=== PATIENT | female | born 1995 | race Caucasian/White ===

== ENCOUNTER 2021-03-02 13:34 | Emergency (ER) | payer BC ==
[2021-03-02] MEDS ORDERED: Sodium Chloride 0.9% 10 ML Syringe FLUSH PRN (13:57)
[2021-03-02] MEDS ORDERED: HYDROmorphone 1 MG/ML Syringe IVPUSH ONE (13:57)
[2021-03-02] MEDS ORDERED: Lactated Ringers 1,000 ML IV SCH (14:00)
--- NOTE | 2021-03-02 14:03 | EDM.PDOC ---
ED HPI GENERAL MEDICAL PROBLEM - General Chief Complaint: Lower Extremity Injury/Pain Stated Complaint: LT ANKLE INJURY Time Seen by Provider: 03/02/21 13:51 Source of Information: Reports: Patient History Limitations: Reports: No Limitations - History of Present Illness INITIAL COMMENTS - FREE TEXT/NARRATIVE: The patient presents with a left ankle injury. She was hiking and she slid down a hill and dislocated her left ankle. She denies any other injuries. She last ate at 8am. She did have some water on the way here. She has no medical problems. Onset: Sudden Duration: Hour(s): Location: Reports: Lower Extremity, Left (ankle) Quality: Reports: Sharp Severity: Severe Improves with: Reports: Immobilization Worsens with: Reports: Movement Context: Reports: Trauma (slid down and hill) Associated Symptoms: Reports: No Other Symptoms Left Ankle Pain Score (Numeric/FACES): 8 - Related Data Allergies Allergy/AdvReac Type Severity Reaction Status Date / Time No Known Allergies Allergy Verified 03/02/21 13:54 Home Meds: Home Meds oxyCODONE HCl/Acetaminophen [Percocet 5-325 mg Tablet] 1 - 2 each PO Q6HR PRN #30 tablet 03/02/21 [Rx] Past Medical History Psychiatric History: Reports: Anxiety - Past Surgical History HEENT Surgical History: Reports: Oral Surgery Social & Family History - Tobacco Use Tobacco Use Status *Q: Never Tobacco User - Caffeine Use Caffeine Use: Reports: Coffee - Recreational Drug Use Recreational Drug Use: No Review of Systems - Review of Systems Review Of Systems: See Below Constitutional: Reports: No Symptoms Eyes: Reports: No Symptoms Ears: Reports: No Symptoms Nose: Reports: No Symptoms Mouth/Throat: Reports: No Symptoms Respiratory: Reports: No Symptoms Cardiovascular: Reports: No Symptoms GI/Abdominal: Reports: No Symptoms Genitourinary: Reports: No Symptoms Musculoskeletal: Reports: Other (Left ankle injury) ED EXAM, GENERAL - Physical Exam Exam: See Below Exam Limited By: No Limitations General Appearance: Alert, No Apparent Distress Ears: Normal External Exam Nose: Normal Inspection Head: Atraumatic, Normocephalic Neck: Normal Inspection Respiratory/Chest: No Respiratory Distress, Lungs Clear, Normal Breath Sounds Cardiovascular: Regular Rate, Rhythm, No Edema, No Murmur GI/Abdominal: Soft, Non-Tender, No Organomegaly, No Mass Extremities: Other (Left ankle swelling and deformity. The foot is shifted backward. Good sensation and pulses distally.) ED TRAUMA EXTREMITY PROCEDURES - Joint Reduction Left Ankle Sedation: Conscious Sedation Pre-Procedure NV Status: Normal Post-Procedure NV Status: Normal Technique: Traction/Counter Traction Number of Attempts: 1 Post-Reduction Imaging: Completely Reduced, Fracture Seen Joint Reduction Complications: No - Splinting Left Lower Extremity Splint Site: Left ankle Pre-Procedure NV Status: Normal Post-Procedure NV Status: Normal Splint Material: Fiberglass Splint Design: Stirrup, Posterior Applied & Form Fitted By: Provider Provider Post-Splint Application NV Check: NV Status Normal, Good Position Complications: No Course - Vital Signs Last Recorded V/S: Last Vital Signs Temp 96.9 F 03/02/21 13:51 Pulse 86 03/02/21 13:51 Resp 18 03/02/21 13:51 BP 136/72 03/02/21 13:51 Pulse Ox 100 03/02/21 13:51 - Orders/Labs/Meds Orders: Active Orders 24 hr Category Date Time Status Ankle 2V Lt [CR] Stat Exams 03/02/21 15:02 Taken Ankle Min 3V Lt [CR] Stat Exams 03/02/21 13:58 Taken Durable Medical Equipment for Discharge [DME for Oth 03/02/21 15:37 Ordered Discharge] [COMM] Stat Peripheral IV Insertion Adult [OM.PC] Routine Oth 03/02/21 13:57 Ordered Meds: Medications Discontinued Medications Generic Name Dose Route Start Last Admin Trade Name Freq PRN Reason Stop Dose Admin Hydromorphone HCl 1 mg 03/02/21 13:57 03/02/21 14:04 Hydromorphone 1 Mg/Ml Syringe IVPUSH 03/02/21 13:58 1 mg ONETIME ONE Administration Hydromorphone HCl 0.5 mg 03/02/21 15:19 03/02/21 15:26 Hydromorphone 0.5 Mg/0.5 Ml Syringe IVPUSH 03/02/21 15:20 0.5 mg ONETIME ONE Administration Hydromorphone HCl 0.5 mg 03/02/21 16:09 03/02/21 16:16 Hydromorphone 0.5 Mg/0.5 Ml Syringe IVPUSH 03/02/21 16:10 0.5 mg ONETIME ONE Administration Lactated Ringer's 1,000 mls @ 100 mls/hr 03/02/21 14:00 03/02/21 14:08 Ringers, Lactated IV 100 mls/hr ASDIRECTED STEPHAN Administration Ketorolac Tromethamine 30 mg 03/02/21 16:09 03/02/21 16:14 Ketorolac 30 Mg/Ml Sdv IVPUSH 03/02/21 16:10 30 mg ONETIME ONE Administration Propofol Confirm 03/02/21 14:47 Propofol 200 Mg/20 Ml Sdv Administered 03/02/21 14:48 Dose 200 mg .ROUTE .STK-MED ONE Propofol Confirm 03/02/21 14:54 Propofol 200 Mg/20 Ml Sdv Administered 03/02/21 14:55 Dose 200 mg .ROUTE .STK-MED ONE Sodium Chloride 10 ml 03/02/21 13:57 03/02/21 14:09 Sodium Chloride 0.9% 10 Ml Syringe FLUSH 10 ml ASDIRECTED PRN Administration Keep Vein Open - Re-Assessments/Exams Free Text/Narrative Re-Assessment/Exam: 03/02/21 14:02 I ordered an IV LR at 100ml/hr, dilaudid 1mg IV and an x-ray. 03/02/21 15:04 The x-ray does show a fracture dislocation of her left ankle. She has a trimalleolar fracture. 03/02/21 15:26 I had our FIELD SPEC come in and she sedated the patient and I was able to reduce her and splint her. 03/02/21 15:[address] Dent at [facility] in [place] and he wanted us to reduce the ankle and splint her and she can follow up at home in [place]. I called [facility] in [place] and talked with the orthopedic PA director talent acquisition Neil. She took down the patient's info and they will be calling her for a follow up appointment on Thursday. Departure - Departure Time of Disposition: 15:35 Disposition: Home, Self-Care 01 Condition: Good Clinical Impression: Fall Qualifiers: Encounter type: initial encounter Qualified Code(s): W19.XXXA - Unspecified fall, initial encounter Dislocation of left ankle joint Qualifiers: Encounter type: initial encounter Qualified Code(s): S93.05XA - Dislocation of left ankle joint, initial encounter Trimalleolar fracture of ankle, closed Qualifiers: Encounter type: initial encounter Laterality: left Qualified Code(s): S82.852A - Displaced trimalleolar fracture of left lower leg, initial encounter for closed fracture - Discharge Information *PRESCRIPTION DRUG MONITORING PROGRAM REVIEWED*: Not Applicable *COPY OF PRESCRIPTION DRUG MONITORING REPORT IN PATIENT MARITO: Not Applicable Prescriptions: oxyCODONE HCl/Acetaminophen [Percocet 5-325 mg Tablet] 1 - 2 each PO Q6HR PRN #30 tablet PRN Reason: Pain Instructions: Ankle Fracture, [id number] Referrals: PCP,None [Primary Care Provider] - Forms: ED Department Discharge Additional Instructions: Ice your ankle for 15 to 20 minutes 5 times per day for 2 days. Elevate your ankle as much as you can for 3 days to reduce swelling. Take tylenol or motrin for pain. If that does not help try the percocet. Follow up with an orthopedic surgeon at home. I did talk with a physician contact lens assistant with the group at [facility]. She said someone from their team will be calling you on Thursday. If you do not hear from them try calling Thursday afternoon. Sepsis Event Note (ED) - Evaluation Sepsis Screening Result: No Definite Risk - Focused Exam Vital Signs: Vital Signs Temp Pulse Resp BP Pulse Ox 03/02/21 13:51 96.9 F 86 18 136/72 100 - My Orders Last 24 Hours: My Active Orders 03/02/21 13:57 Peripheral IV Insertion Adult [OM.PC] Routine 03/02/21 13:58 Ankle Min 3V Lt [CR] Stat 03/02/21 15:02 Ankle 2V Lt [CR] Stat 03/02/21 15:37 Durable Medical Equipment for Discharge [DME for Discharge] [COMM] Stat - Assessment/Plan Last 24 Hours: My Active Orders 03/02/21 13:57 Peripheral IV Insertion Adult [OM.PC] Routine 03/02/21 13:58 Ankle Min 3V Lt [CR] Stat 03/02/21 15:02 Ankle 2V Lt [CR] Stat 03/02/21 15:37 Durable Medical Equipment for Discharge [DME for Discharge] [COMM] Stat
[2021-03-02] MEDS ORDERED: Propofol 200 MG/20 ML SDV ONE ×2 (14:47→14:54)
--- NOTE | 2021-03-02 14:51 | PCM.PREANE ---
Preanesthetic Assessment - Procedure Proposed Procedure: sedation for location fracture ankle - Anesthesia/Transfusion/Family Hx Anesthesia History: Prior Anesthesia Without Reaction Family History of Anesthesia Reaction: No Transfusion History: No Prior Transfusion(s) - Review of Systems General: No Symptoms Pulmonary: No Symptoms Cardiovascular: No Symptoms Gastrointestinal: No Symptoms Neurological: No Symptoms Other: Reports: None - Physical Assessment NPO Status Date: 03/02/21 NPO Status Time: 08:00 (food and water 1 hour ago) Vital Signs: Last Vital Signs Temp 96.9 F 03/02/21 13:51 Pulse 86 03/02/21 13:51 Resp 18 03/02/21 13:51 BP 136/72 03/02/21 13:51 Pulse Ox 100 03/02/21 13:51 Height: 5 ft 7 in Weight: 65.771 kg ASA Class: 1E Mental Status: Alert & Oriented x3 Airway Class: Mallampati = 1 Dentition: Reports: Normal Dentition Thyro-Mental Finger Breadths: 3 Mouth Opening Finger Breadths: 3 ROM/Head Extension: Full Lungs: Clear to Auscultation, Normal Respiratory Effort Cardiovascular: Regular Rate, Regular Rhythm - Allergies Allergies/Adverse Reactions: Allergies Allergy/AdvReac Type Severity Reaction Status Date / Time No Known Allergies Allergy Verified 03/02/21 13:54 - Blood Blood Available: No - Acknowledgements Anesthesia Type Planned: MAC Pt an Appropriate Candidate for the Planned Anesthesia: Yes Alternatives and Risks of Anesthesia Discussed w Pt/Guardian: Yes Pt/Guardian Understands and Agrees with Anesthesia Plan: Yes PreAnesthesia Questionnaire Cardiovascular History: Reports: None Gastrointestinal History: Reports: None Psychiatric History: Reports: Anxiety Oncologic (Cancer) History: Reports: None - Past Surgical History HEENT Surgical History: Reports: Oral Surgery - SUBSTANCE USE Tobacco Use Status *Q: Never Tobacco User Tobacco Use Within Last Twelve Months: No Second Hand Smoke Exposure: No Days Per Week of Alcohol Use: 2 Recreational Drug Use History: No - HOME MEDS Home Medications: Home Meds . [No Known Home Meds] 03/02/21 [History] - CURRENT (IN HOUSE) MEDS Current Meds: Current Medications Lactated Ringer's (Ringers, Lactated) 1,000 mls @ 100 mls/hr IV ASDIRECTED STEPHAN Last Admin: 03/02/21 14:08 Dose: 100 mls/hr Documented by: Sodium Chloride (Sodium Chloride 0.9% 10 Ml Syringe) 10 ml FLUSH ASDIRECTED PRN PRN Reason: Keep Vein Open Last Admin: 03/02/21 14:09 Dose: 10 ml Documented by: Discontinued Medications Hydromorphone HCl (Hydromorphone 1 Mg/Ml Syringe) 1 mg IVPUSH ONETIME ONE Stop: 03/02/21 13:58 Last Admin: 03/02/21 14:04 Dose: 1 mg Documented by:
[2021-03-02] MEDS ORDERED: HYDROmorphone 0.5 MG/0.5 ML Syringe IVPUSH ONE ×2 (15:19→16:09)
[2021-03-02] MEDS ORDERED: Ketorolac 30 MG/ML SDV IVPUSH ONE (16:09)
--- NOTE | 2021-03-03 17:01 | CR ---
Left ankle: 3 views of the left ankle were obtained. Distal fibula shaft fracture is seen. Medial malleolus fracture is noted as well as posterior malleolus fracture. Dislocation of the tibia in an anterior direction to the talus is noted. Diffuse soft tissue swelling is seen. Impression: 1. Trimalleolar fracture with mild displacement and soft tissue swelling. Diagnostic code #3
--- NOTE | 2021-03-03 17:02 | CR ---
Left ankle: Single lateral view of the left ankle was obtained. Comparison: Prior ankle study performed earlier on the same day (2:16 PM) Findings: Fracture is seen within the distal fibula and lateral malleolus. Fracture is noted within the posterior malleolus. Previous dislocation has been partially reduced with mild subluxation remaining of the tibiotalar joint. Fiberglass cast or splint is in place. Impression: 1. Trimalleolar fracture. 2. Alignment is improved but mild subluxation remains within the tibiotalar joint. 3. Fiberglass cast or splint is in place. Diagnostic code #3
== END 2021-03-02 16:20 | disposition home or self-care (01) ==
LOC: JD.ED 13:34
DX: S82.852A Displaced trimalleolar fracture of left lower leg, initial encounter for closed fracture (principal); S93.05XA Dislocation of left ankle joint, initial encounter; Y93.01 Activity, walking, marching and hiking
CPT/HCPCS: 27840; 73600; 73610; 96374; 96375; 96376; 99283; J1170; J1885; J2704; J7120; 01462; 27818; 99140